=== PATIENT | female | born 1980 | race Caucasian/White ===

== ENCOUNTER 2020-04-24 09:08 | Emergency (ER) | payer MEDICAID ==
[~2020-04-24] VITALS: Ht 162.6 cm; Wt 100.0 kg
[~2020-04-24 09:08] MED LIST: MOTRIN
[2020-04-24 10:00] LABS: BASOPHILS % 0.7 % (0.0-2.0); EOSINOPHILS % 0.1 % (0.0-5.0); HEMATOCRIT. 46.2 % (36.0-48.0); HEMOGLOBIN. 15.9 g/dL (12.0-16.0); LYMPHOCYTES % 15.5 % (20.0-50.0); MEAN CORPUSCULAR VOLUME 90.1 fL (81.0-99.0); MONOCYTES % 5.4 % (2.0-8.0); NEUTROPHILS % 78.3 % (40.0-76.0); PLATELET 292 x1000/uL (130-400); RED BLOOD CELL COUNT 5.13 mill/uL (4.2-5.4); RED CELL DISTRIBUTION WIDTH 13.7 % (11.6-14.6)
[2020-04-24 10:04] LABS: CLARITY URINE CLEAR (CLEAR); COLOR URINE YELLOW (YELLOW); KETONES URINE 4+ (NEGATIVE); LEUKOCYTE ESTERASE URINE NEGATIVE (NEGATIVE); NITRITE URINE NEGATIVE (NEGATIVE); OCCULT BLOOD URINE NEGATIVE (NEGATIVE); PROTEIN URINE 1+ (NEGATIVE); SPECIFIC GRAVITY URINE 1.041 (1.005-1.030); UROBILINOGEN URINE 0.2 E.U./dL (0.2-1.0)
[2020-04-24 10:05] LABS: CHLORIDE 105 mEq/L (98-107)
[2020-04-24 10:13] LABS: ETHANOL BLOOD < 10 mg/dL
[2020-04-24] MEDS ORDERED: LORAZEPAM 2MG/ML CPJ IM ONE (10:15)
[2020-04-24 10:28] LABS: OPIATES URINE SCREEN NEGATIVE (NEGATIVE)
[2020-04-24 10:29] LABS: *BARBITURATES SCREEN URINE NEGATIVE (NEGATIVE); *BENZODIAZEPINES SCREEN URINE NEGATIVE (NEGATIVE); *COCAINE SCREEN URINE NEGATIVE (NEGATIVE); CANNABINOID URINE SCREEN NEGATIVE (NEGATIVE); METHADONE URINE SCREEN NEGATIVE (NEGATIVE); PHENCYCLIDINE URINE SCREEN NEGATIVE (NEGATIVE)
[2020-04-24 10:37] LABS: *AMPHETAMINES SCREEN URINE PRESUMTIVE POSITIVE (NEGATIVE)
[2020-04-24 15:13] VITALS: BP 145/76
== END 2020-04-24 15:14 | disposition home or self-care (01) ==
LOC: ER 09:25
DX: T43.621A Poisoning by amphetamines, accidental (unintentional), initial encounter (principal); E11.9 Type 2 diabetes mellitus without complications; Y92.018 Other place in single-family (private) house as the place of occurrence of the external cause
CPT/HCPCS: 36415; 80053; 80305; 80307; 80320; 80329; 81003; 81025; 85025; 93005; 96372; 99285; J2060; G0480

== ENCOUNTER 2024-09-13 20:50 | Emergency (ER) | payer OTHER, MEDICAID ==
[~2024-09-13] VITALS: Ht 162.6 cm; Wt 50.0 kg
[2024-09-13 21:05] VITALS: O2SAT 98
[2024-09-13] MEDS: SODIUM CHLORIDE 0.9% 1,000 ML IV ONE (21:52)
[2024-09-13 23:17] LABS: BASOPHILS % 1.4 % (0.0-2.0); EOSINOPHILS % 1.1 % (0.0-5.0); HEMATOCRIT. 35.7 % (36.0-48.0); HEMOGLOBIN. 12.8 g/dL (12.0-16.0); LYMPHOCYTES % 31.7 % (20.0-50.0); MEAN CORPUSCULAR HEMOGLOBIN 32.4 pg (28.0-32.0); MEAN CORPUSCULAR HGB CONC 35.7 g/dL (31.0-37.0); MEAN CORPUSCULAR VOLUME 90.6 fL (81.0-99.0); MEAN PLATELET VOLUME 7.1 fl (7.4-10.4); MONOCYTES % 7.3 % (2.0-8.0); NEUTROPHILS % 58.5 % (40.0-76.0); PLATELET 318 x1000/uL (130-400); RED BLOOD CELL COUNT 3.94 mill/uL (4.2-5.4); RED CELL DISTRIBUTION WIDTH 13.3 % (11.6-14.6); WHITE BLOOD COUNT 7.9 x1000/uL (4.5-11.0)
[2024-09-13 23:20] LABS: CHLORIDE 101 mEq/L (98-107); POTASSIUM 3.9 mEq/L (3.5-5.1); SODIUM 136 mEq/L (136-145)
[2024-09-13 23:21] LABS: CALCIUM 8.8 mg/dL (8.7-10.4); CARBON DIOXIDE 26 mEq/L (21-32)
[2024-09-13 23:22] LABS: INR 0.9; PROTHROMBIN TIME 10.2 sec (9.6-11.0)
[2024-09-13 23:26] LABS: CREATININE 0.6 mg/dL (0.6-1.0); UREA NITROGEN BLOOD 17 mg/dL (9-23)
[2024-09-13 23:30] LABS: HCG SCREEN NEGATIVE
[2024-09-13 23:47] LABS: ETHANOL BLOOD < 10 mg/dL (<10); GLUCOSE 484 mg/dL (70-105)
[2024-09-14] MEDS ORDERED: DEXTROSE 50% WATER 50ML SYRINGE IV PRN
[2024-09-14 00:11] LABS: BETA HYDROXYBUTYRATE 0.3 mMol/L (0.0-0.3)
[2024-09-14] MEDS: CHLORDIAZEPOXIDE 25MG CAPSULE PO ONE (00:12)
[2024-09-14 01:03] LABS: ALANINE AMINOTRANSFERASE 116 IU/L (10-49); ALBUMIN 3.9 g/dL (3.2-4.8); ASPARTATE AMINOTRANSFERASE 54 IU/L (<34); BILIRUBIN DIRECT 0.1 mg/dL (<=3.0); BILIRUBIN TOTAL 0.5 mg/dL (0.1-1.0); PROTEIN TOTAL 6.5 g/dL (6.0-8.3)
[2024-09-14] MEDS: INSULIN LISPRO 100 UNITS/ML SUBCUT STA (01:22)
[2024-09-14 01:49] LABS: AMMONIA 24 uMol/L (<32)
[2024-09-14] MEDS: LORAZEPAM 2MG/ML INJ IV ONE (02:02)
[2024-09-14 07:30] VITALS: TEMP 36.83628; O2SAT 97
[2024-09-14 08:52] VITALS: BP 131/86; PULSE 93; RESP 28; TEMP 98.3
[2024-09-14] MEDS: BLOOD SUGAR DIAGNOSTIC STRIP TEST SCH (09:00)
== END 2024-09-14 11:27 | disposition left against medical advice (07) ==
LOC: ER 20:50 → EDBEDREQ 09-14 00:10 → EDBEDREQTM 09-14 00:10 → ER 09-14 11:27
DX: E11.65 Type 2 diabetes mellitus with hyperglycemia (principal); R41.82 Altered mental status, unspecified; F17.200 Nicotine dependence, unspecified, uncomplicated; F15.10 Other stimulant abuse, uncomplicated; R56.9 Unspecified convulsions; Z79.899 Other long term (current) drug therapy
CPT/HCPCS: 80076; 80048; 82010; 80320; 82962; 84703; 85025; 85610; 36415; 71045; 70450; 99291; 96361; 82140; 93005; 96372; 96374; J7030; J1815; J2060; G0480